=== PATIENT | male | born 1950 | race Caucasian/White ===

== ENCOUNTER 2017-06-20 09:58 | Day surgery (SDC) | payer BC ==
[~2017-06-20] VITALS: Ht 186.7 cm; Wt 174.2 kg
[~2017-06-20 09:58] MED LIST: ALBU0.63 NEB; APIX2.5T PO; BLOO-377 EXT; BUSP7.5T3 PO; COLC1TAB PO; FEBU40TA PO; FURO20TA3 PO; LANS15CA60 PO; LISI-167 PO; LORA10TA75 PO; METO-99 PO; METO200T5 PO; PIOG30TA23 PO; SIMV40TA PO; TADA20TA PO; TEST60GE EXT
[2017-06-20 11:15] VITALS: BP 117/85
[2017-06-20] MEDS ORDERED: ALBU8.5H8 INH (11:15)
[2017-06-20] MEDS ORDERED: FEBU40TA PO (11:15)
[2017-06-20] MEDS ORDERED: DAPA1TAB5 PO (11:15)
[2017-06-20] MEDS ORDERED: FURO-92 PO (11:15)
[2017-06-20] MEDS ORDERED: TEST60GE TP (11:15)
[2017-06-20] MEDS ORDERED: BUSP5TAB2 PO (11:15)
[2017-06-20] MEDS ORDERED: METO-99 PO (11:15)
[2017-06-20] MEDS ORDERED: APIX5TAB PO (11:15)
[2017-06-20] MEDS ORDERED: LIRA0.6P SC (11:15)
[2017-06-20] MEDS ORDERED: TADA20TA PO (11:15)
[2017-06-20] MEDS ORDERED: LANS15CA60 PO (11:15)
[2017-06-20] MEDS ORDERED: FLUT9.9S NAS (11:15)
[2017-06-20] MEDS ORDERED: LORA10CA PO (11:15)
[2017-06-20] MEDS ORDERED: FLUT1AER INH (11:15)
[2017-06-20] MEDS ORDERED: LACTATED RINGERS 1,000 ML IV SCH (11:36)
[2017-06-20] MEDS ORDERED: ACETAMINOPHEN 325 MG TABLET PO PRN (12:00)
[2017-06-20] MEDS ORDERED: ONDANSETRON 2MG/ML, 2ML IVPush PRN (12:00)
[2017-06-20] MEDS ORDERED: FENTANYL PF 100 MCG/2ML IV PRN (12:00)
[2017-06-20] MEDS ORDERED: PROPOFOL 10 MG/ML, 20ML ONE (12:08)
[2017-06-20] MEDS ORDERED: ONDANSETRON 2MG/ML, 2ML ONE (12:08)
== END 2017-06-20 14:30 ==
LOC: OUT 09:58
PROVIDERS: ATTEND Internal Medicine
DX: Z09 Encounter for follow-up examination after completed treatment for conditions other than malignant neoplasm (principal); Z87.19 Personal history of other diseases of the digestive system; K57.30 Diverticulosis of large intestine without perforation or abscess without bleeding; K64.8 Other hemorrhoids; K21.9 Gastro-esophageal reflux disease without esophagitis; I10 Essential (primary) hypertension; E66.01 Morbid (severe) obesity due to excess calories; Z68.43 Body mass index [BMI] 50.0-59.9, adult; Z87.39 Personal history of other diseases of the musculoskeletal system and connective tissue; Z88.1 Allergy status to other antibiotic agents; Z88.0 Allergy status to penicillin
CPT/HCPCS: 45378; 82962; J2405; J2704; J7120

== ENCOUNTER → 2018-05-16 | Outpatient (CLI) | payer BC ==
[~2018-05-16] MED LIST changes: +ALBU8.5H8 INH; +APIX5TAB PO; +BUSP5TAB2 PO; +DAPA1TAB5 PO; +FLUT1AER INH; +FLUT9.9S NAS; +FURO-92 PO; +LIRA0.6P SC; +LORA10CA PO; +METO200T47 PO; -METO200T5 PO; +TEST60GE TP
== END | disposition home or self-care (01) ==
LOC: CFH 12:06
PROVIDERS: ATTEND Nurse Practitioner
DX: S62.101A Fracture of unspecified carpal bone, right wrist, initial encounter for closed fracture (principal); X58.XXXA Exposure to other specified factors, initial encounter; Y93.89 Activity, other specified; Y92.89 Other specified places as the place of occurrence of the external cause; Y99.8 Other external cause status

== ENCOUNTER → 2018-07-12 | Outpatient (CLI) | payer BC ==
[~2018-07-12] MED LIST changes: +REGADENOSON 0.4 MG/5 ML SYRINGE ONE
== END | disposition home or self-care (01) ==
LOC: CFH 11:49
PROVIDERS: ATTEND Internal Medicine Cardiovascular Disease
DX: Z01.810 Encounter for preprocedural cardiovascular examination (principal); I45.10 Unspecified right bundle-branch block
CPT/HCPCS: 78452; 93017; A9502; J2785